=== PATIENT | female | born 1940 ===

== ENCOUNTER 2024-09-07 06:00 | Outpatient (RCR) | payer MEDICARE, SELFPAY | END 2024-09-30 23:59 | disposition home or self-care (01) | LOC: GPT 06:00 | PROVIDERS: Visit Provider Family Medicine | DX: I63.9 Cerebral infarction, unspecified (principal); R26.81 Unsteadiness on feet; R26.89 Other abnormalities of gait and mobility; M62.81 Muscle weakness (generalized) | CPT/HCPCS: 97110; 97112; 97162; 97530 ==

== ENCOUNTER 2024-10-01 06:00 | Outpatient (RCR) | payer MEDICARE, SELFPAY | END 2024-10-31 23:59 | disposition home or self-care (01) | LOC: GPT 06:00 | PROVIDERS: Visit Provider Family Medicine | DX: I63.9 Cerebral infarction, unspecified (principal); R26.81 Unsteadiness on feet; R26.89 Other abnormalities of gait and mobility; M62.81 Muscle weakness (generalized) | CPT/HCPCS: 97110; 97112; 97530 ==

== ENCOUNTER 2024-11-01 05:00 | Outpatient (RCR) | payer MEDICARE, SELFPAY | END 2024-11-29 12:20 | disposition home or self-care (01) | LOC: GPT 05:00 | PROVIDERS: Visit Provider Family Medicine | DX: I63.9 Cerebral infarction, unspecified (principal); R26.81 Unsteadiness on feet; R26.89 Other abnormalities of gait and mobility; M62.81 Muscle weakness (generalized) | CPT/HCPCS: 97110; 97112; 97164; 97530 ==